=== PATIENT | male | born 1945 | race Caucasian/White ===

== ENCOUNTER 2017-01-03 17:24 | Inpatient (IN) | payer MEDICARE, BC ==
--- NOTE | ~2017-01-03 | CR72 ---
[facility] A Service of [facility] RADIOLOGY TEXT RESULTS PATIENT: OSWALDO RUANO LOCATION: [facility] 563-01 : 45 UNIT #: [id number] AGE: [address]: Matthew Whelan MD SEX: M ORDER DR: [id number] [facility] [address] [facility]. [place], [place] [address] [id number] MR#: [id number] Acc #: [id number] NAME: OSWALDO RUANO : 1945 SEX: M STUDY DATE/TIME: 01/03/2017 18:17 UNIT: JASON ROOM: STUDY DESCRIPTION: CR Chest Single View Portable Attending Physician: John Malhotra M.D. Ordering Physician: Ed Doctor [id number] [facility] Primary Care Physician: Jovani Pak M.D. MEDICAL IMAGING REPORT This report is preliminary unless electronic signature is present EXAM Frontal single view of the chest dated 01/03/2017 at 1817 hours. COMPARISON Single view chest dated 04/10/1969 at 21:07 hours. HISTORY Chest pain this morning. FINDINGS Single view of the chest was obtained. Port cath is in the left upper lateral chest with the tip of the catheter probably in the region of the left brachiocephalic vein. It is noted in the left paramidline aspect of the spine. Its position is stable when compared to the prior study from 04/10/2016. No significant interval new abnormality. Mild opacities in bilateral CP angles are noted which could be related to pleural thickening. Given the chronic appearance, thickening is favored. Pleural effusion and atelectasis/infiltrate in the lungs are in the differential consideration. IMPRESSION No significant interval change or acute abnormality. Dictated by... Rebecca Hayes M.D. THIS IS AN ELECTRONICALLY VERIFIED REPORT Rebecca Hayes M.D. at 01/04/2017 1:12 PM CPR/rnr TD: 01/03/2017 21:32 JOB #: [id number] [facility] A Service of [facility] RADIOLOGY TEXT RESULTS PATIENT: OSWALDO RUANO LOCATION: [facility] 563-01 : 45 UNIT #: [id number] AGE: [address]: Matthew Whelan MD SEX: M ORDER DR: MEDICAL IMAGING REPORT Page 1 of 1 COPY
--- NOTE | ~2017-01-03 | EKG ---
PATIENT: OSWALDO RUANO UNIT #: [id number] Ventricular Rate: 46 BPM Atrial Rate: 46 BPM P-R Interval: 160 ms QRS Duration: 80 ms Q-T Interval: 512 ms QTC Calculation(Bezet): 448 ms P [place]: 29 degrees Calculated R [place]: -5 degrees Calculated T [place]: 16 degrees Diagnosis Line: Sinus bradycardia Diagnosis Line: Minimal voltage criteria for LVH, may be normal Diagnosis Line: variant Diagnosis Line: Septal infarct , age undetermined Diagnosis Line: Abnormal ECG Diagnosis Line: When compared with ECG of 04-JAN-2017 06:49, Diagnosis Line: (unconfirmed) Diagnosis Line: Septal infarct is now Present Diagnosis Line: Confirmed by HILARY BERMUDEZ, MICHAEL ([id number]) on 01/05/2017 Diagnosis Line: 10:54:59 AM INTERPRETING MD: HILARY BERMUDEZ
--- NOTE | ~2017-01-03 | EKG ---
PATIENT: OSWALDO RUANO UNIT #: [id number] Ventricular Rate: 50 BPM Atrial Rate: 50 BPM P-R Interval: 132 ms QRS Duration: 78 ms Q-T Interval: 484 ms QTC Calculation(Bezet): 441 ms P [place]: 34 degrees Calculated R [place]: 13 degrees Calculated T [place]: 69 degrees Diagnosis Line: Sinus bradycardia Diagnosis Line: Nonspecific ST and T wave abnormality Diagnosis Line: Abnormal ECG Diagnosis Line: When compared with ECG of 21-OCT-2015 13:29, Diagnosis Line: No significant change was found Diagnosis Line: Confirmed by KENYA CARR MD ([id number]) on Diagnosis Line: 01/04/2017 10:40:12 AM INTERPRETING MD: LILLY BERMUDEZ
--- NOTE | ~2017-01-03 | HP ---
Unit #: [id number] #: [id number] Patient: OSWALDO RUANO [id number] [address] [place], [place] [address] [id number] I MR#: [id number] NAME: OSWALDO RUANO ROOM: 563 Age: 71 Sex: M Admission Date: 01/03/2017 : 1945 Attending Physician: Matthew Whelan M.D. Primary Care Physician: Jovani Pak M.D. 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 The patient typically follows with Dr. Pete Phan in [place]. According to the , the patient was at home yesterday in his typical state of health when he began to develop complaints of substernal chest pain. She states she had one episode approximately 10 o'clock in the morning which was relieved with nitroglycerin. The patient had gone outside in his wheelchair and was wheeling around when he developed a second episode of substernal chest pain described as tightness. He denies any palpitations, diaphoresis, nausea or vomiting. He did have some shortness of breath with the episode. She gave him an additional nitroglycerin with no relief. Therefore, he was brought into the emergency room for evaluation. On arrival to the emergency room, EKG was performed which showed sinus bradycardia, rate of 50 beats per minute, nonspecific ST-T wave abnormality. No acute ischemic change. Initial troponins have been negative. At present, he is currently resting in bed. He is chest pain free. His is at bedside. We were asked to see for evaluation of the above. PAST MEDICAL HISTORY 1. Hypertension. 2. Hyperlipidemia. 3. Known coronary artery disease with a history of stent placement 2015 in [place], [place]. 4. History of stroke 2001 with aphasia and right-sided hemiparesis. 5. BPH. 6. Diverticular disease. 7. Pancreatitis. PAST SURGICAL HISTORY 1. Mediport replacement and removal. 2. Cholecystectomy. 3. Colonoscopy. 4. Left carotid endarterectomy. SOCIAL HISTORY The patient lives with his . He mostly uses a wheelchair. However, he can ambulate some with a cane. He is a reformed tobacco user, quit in 2001. The patient denies illicit drugs or alcohol use. FAMILY HISTORY Unit #: [id number] #: [id number] Patient: OSWALDO RUANO Negative for coronary artery disease. ALLERGIES Flagyl and Levaquin. HOME MEDICATIONS 1. Aspirin 325 mg p.o. daily. 2. Avodart 0.5 mg p.o. daily. 3. Plavix 75 mg p.o. daily. 4. Cozaar 25 mg p.o. daily. 5. Pravastatin 40 mg p.o. q.h.s. 6. Omeprazole 40 mg p.o. daily. 7. Isosorbide 10 mg p.o. daily. 8. Metoprolol 25 mg p.o. daily. REVIEW OF SYSTEMS Completed and is negative except for what was stated above in the HPI. PHYSICAL EXAMINATION GENERAL APPEARANCE: This is a very pleasant, male who is in no acute distress. He has right-sided hemiparesis from a previous stroke. His is present at bedside. VITAL SIGNS: Temperature 98.1. Respiratory rate 16. Pulse 47 to 55. Blood pressure 179/74. HEENT: Head is atraumatic, normocephalic. Mucous membranes are dry. NECK: Supple. Trachea is midline. He has an incision in his left carotid artery. No JVD. CARDIOVASCULAR: S1, S2. No murmur, gallop or rub. LUNGS: Clear to auscultation. No increased work of breathing. No rales, rhonchi or wheezes. ABDOMEN: Soft, nontender. Obese. Nondistended. Bowel sounds are present. EXTREMITIES: Pulses are palpable but weak. No clubbing, cyanosis or edema. NEUROLOGIC: He is awake and alert. He follows commands. He moves extremities appropriately with the exception of his right side secondary to previous stroke and hemiparesis. DIAGNOSTIC STUDIES LABORATORY: Troponins have been less than 0.05. Sodium 137, potassium 3.9, chloride 105, CO2 25, BUN 31, creatinine 1.3, glucose 107. Hemoglobin 14.7, hematocrit 44.6, WBC 9.3, platelets 179. Magnesium 1.8. IMAGING: Chest x-ray shows port cath in the left upper chest with the tip of the catheter in the region of the left brachiocephalic vein. Position is stable. No significant interval new abnormality. Mild opacities in the bilateral CP angles are noted which could be related to pleural thickening. Given the chronic appearance, thickening is favored. Pleural effusion and atelectasis, infiltrate in the lungs are in the differential consideration but no significant interval change or acute abnormality is noted. ASSESSMENT 1. Chest pain rule out for acute coronary syndrome. 2. Nonsustained V-tach. 3. History of coronary artery disease with stent in 2016 in [place], [place]. History of reported recent abnormal stress Cardiolite. 4. Hypertension. Unit #: [id number] #: [id number] Patient: OSWALDO RUANO 5. Hyperlipidemia. 6. History of renal insufficiency followed by (1) in [place]. 7. History of stroke in 2001 with residual aphasia and right-sided hemiparesis. This case has been discussed with Dr. Mahan. We will check 2D echo, labs and lytes as well as a fasting lipid profile. He will be started on IV hydration at 75 mL/hour as well as Mucomyst for renal protection as the plan is for cardiac catheterization later this afternoon per Dr. Enriquez. We will obtain prior records and add hydralazine for increased blood pressure. The patient will start D5W with 3 amps sodium bicarb 100 mL/hour and those will run six hours post cardiac catheterization per the recommendations of the patient's kidney specialist. This was a note given to me from the . Dictated by Ivy Huff A.P.R.N. LMW/bd TD: 01/04/2017 13:06 JOB #: [id number] HISTORY AND PHYSICAL Page 1 of 1 X Ivy Huff APRN HISTORY AND PHYSICAL
--- NOTE | ~2017-01-03 | DS ---
Unit #: [id number] #: [id number] Patient: OSWALDO RUANO [id number] [facility]. [place], [place] [address] [id number] I MR#: [id number] NAME: OSWALDO RUANO ROOM: 563 Age: 71 Sex: M Admission Date: 01/03/2017 : 1945 Discharge Date: 01/05/2017 Attending Physician: Matthew Whelan M.D. Primary Care Physician: Jovani Pak M.D. DISCHARGE SUMMARY DISCHARGE DIAGNOSES 1. Chest pain, ruled out for acute coronary syndrome. 2. Asymptomatic nonsustained ventricular tachycardia. 3. Status post cardiac catheterization 01/04/[address] Enriquez with normal left main, left anterior descending with 40% to 50% stenosis in the mid area. It goes all around the apex and gets collaterals to right posterior descending artery, very mature collaterals. Left circumflex nondominant vessel. There is a stent which is widely patent. There is a small ramus coming from the proximal part of the left circ at the ostium and has 90% stenosis. Right coronary artery is a large, dominant vessel. Mid area 100% occluded, distally filled by collaterals. 4. 2D echocardiogram - aortic valve mildly calcified, mild aortic stenosis, mild aortic regurgitation, mild tricuspid regurgitation. Right ventricular systolic pressure 44 mmHg. Mild concentric left ventricular hypertrophy. Globally normal left ventricular systolic function. Impaired relaxation. Grade 1 diastolic dysfunction. 5. Asymptomatic sinus bradycardia. 6. Hypertension. 7. Hyperlipidemia. 8. History of renal insufficiency, followed by Dr. Silva in [place]. 9. History of stroke in 2001 with residual aphasia and right sided hemiparesis. DISCHARGE MEDICATIONS 1. Amlodipine 5 mg p.o. daily. 2. Lopressor 25 mg p.o. daily. 3. Atorvastatin 80 mg p.o. q. h.s. 4. Cozaar 50 mg p.o. b.i.d. 5. Avodart 0.5 mg p.o. daily. 6. Aspirin 81 mg p.o. daily. 7. Plavix 75 mg p.o. daily. 8. Omeprazole 40 mg p.o. daily. 9. Isosorbide mononitrate 10 mg p.o. daily. 10. Nitroglycerin 0.4 mg sublingual p.r.n. chest pain. HOSPITAL COURSE This is a very pleasant 70-year-old male with a past medical history of hypertension, hyperlipidemia, coronary artery disease with a history of stent in 2015 in [place], [place], stroke in 2001 with residual aphasia and right sided hemiparesis. The patient usually follows with Dr. Pete Phan in [place]. He presented to the emergency room secondary to continued complaints of chest pain, unrelieved with nitroglycerin. The patient was also noted to be in sinus bradycardia, rate of 46 to 55 Unit #: [id number] #: [id number] Patient: BINDU,OSWALDO beats/minute, asymptomatic. His EKG showed minimal voltage criteria for LVH. Could not rule out previous septal infarct, age undetermined. Point of care troponin were performed and were negative. The patient and state that he had a recent stress test in [facility] which was slightly abnormal. It was decided to take the patient to cardiac lab coordinator for definitive review of his coronary anatomy. Cardiac catheterization was performed by Dr. Enriquez. However, the patient, in lieu of his renal insufficiency, he was prepped with IV hydration six hours pre and post catheterization with D5W with 3 amps of sodium bicarb at 100 mL/hour. Cardiac catheterization results showed a normal left main, large vessel LAD with mid stenosis of 40% to 50%. Circumflex nondominant with a stent which was patent. Small ramus coming from the proximal part of the left circ, at the ostium is 90% stenosed. The RCA was a large, dominant vessel. In the mid area was 100W% occluded, distally filled by collaterals. It was decided the patient should continue on medical treatment. His RCA is distally filled by very mature collaterals. Dr. Enriquez, in his note, he states that if the patient continues to have angina, then CT of the RCA can be performed. He may need laser procedure to pen that vessel. He states his creatinine is elevated today so, therefore, he was reluctant to open this vessel. He will be treated medically. He was also started on Norvasc daily. The patient has stayed overnight. His cardiac rhythm has remained stable. He has had no further episodes with nonsustained V-tach. He denies any further complaints of chest pain even with ambulation. His cardiac cath site is intact. CONSULTANTS There were no consultants on this case. DIAGNOSTIC STUDIES LABORATORY: Glucose 101, BUN 24, creatinine 1.3, sodium 141, potassium 3.9, chloride 104, CO2 28, magnesium 1.8. Troponins remain negative, less than 0.03. Cholesterol 199, triglycerides 147, LDL of 141, HDL 29, LDL/HDL ratio of 5. Hemoglobin 14.0, hematocrit 42.6, WBC 8.4, platelet count 139. CARDIOVASCULAR: EKG shows sinus bradycardia, rate of 46 beats/minute. Minimal voltage criteria for LVH. QTC interval 448 msec. Previous septal infarct could not be ruled out. No acute ischemic changes noted. PHYSICAL EXAMINATION VITAL SIGNS: Temperature 98.0, respiratory rate 16 to 18, pulse is 47 to 55, blood pressure anywhere from 133/56 to 190/77. GENERAL: This is a very pleasant male laying in bed, in no acute distress. His is at bedside. HEENT: Head is atraumatic, normocephalic. Pupils are equal and round. Mucous membranes are moist. NECK: Trachea is midline. No lymphadenopathy, no JVD. Carotid upstrokes are normal. CARDIOVASCULAR: S1, S2. No murmur, gallop, or rub. LUNGS: Clear to auscultation. No rales, rhonchi or wheezing. No increased work of breathing. Unit #: [id number] #: [id number] Patient: OSWALDO RUANO ABDOMEN: Obese, soft, nontender, nondistended. Bowel sounds are present. EXTREMITIES: Pulses are palpable. No clubbing, cyanosis, or edema. NEUROLOGICAL: He is awake, alert and oriented. He follows commands. He moves extremities appropriately with the exception of his right side secondary to previous stroke and hemiparesis. DISCHARGE INSTRUCTIONS The patient has been seen and evaluated and is deemed stable for discharge home today. He was given post cardiac catheterization instructions which were reviewed with both the family and the patient. He was advised the importance of no driving, no heavy lifting, pushing or pulling and no swimming, hot tubs or baths for the next 24 to 48 hours. The patient was also advised on things to look for which include bleeding, swelling or signs and symptoms of infection. He was also advised on any recurrence of chest pain not relieved with nitroglycerin to seek further evaluation. The patient's blood pressure has been continually high during this hospitalization. He has been started on Norvasc, and his Cozaar has been increased. There is no room to increase his beta ritesh secondary to his bradycardia. He will continue on his aspirin and Plavix regimen. He will also be started on high dose statin therapy. Will continue with medical management for now. The patient was advised to follow up with his primary care doctor in approximately one week. He has an appointment with Dr. Phan next Sunday, on the 10 of January, in the [place] office. He was advised to continue to keep that appointment. Dictated by... Margo Alva/sarah TD: 01/09/2017 06:57 JOB #: [id number] DISCHARGE SUMMARY Page 1 of 1 X Ivy Huff APRN X DISCHARGE SUMMARY
--- NOTE | ~2017-01-03 | EKG ---
PATIENT: OSWALDO RUANO UNIT #: [id number] Ventricular Rate: 47 BPM Atrial Rate: 47 BPM P-R Interval: 138 ms QRS Duration: 78 ms Q-T Interval: 504 ms QTC Calculation(Bezet): 446 ms P [place]: 20 degrees Calculated R [place]: -2 degrees Calculated T [place]: 61 degrees Diagnosis Line: Marked sinus bradycardia Diagnosis Line: Nonspecific ST depression Diagnosis Line: Borderline ECG Diagnosis Line: Diagnosis Line: Confirmed by MICHAEL RICHARD MD ([id number]) on 01/05/2017 Diagnosis Line: 10:50:24 AM INTERPRETING MD: HILARY BERMUDEZ
[~2017-01-03 17:24] MED LIST: ACETAMINOPHEN PO; ASPIRIN PO; ASPIRIN81 M2 PO; AUGMENTIN875 MG PO; AVADART; AVODART0.5 MG PO; BAYER ASPIRIN325 M1 PO; BENTYL PO; CHLORTHALIDONE25 MG PO; COZAAR PO; COZAAR25 MG PO; CRESTOR PO; DILANTIN PO; FISH OIL 1,0001 CAP PO; FISH OIL 1,0001 EACH PO; FLAGYL PO; LEVAQUIN PO; METOPROLOL TART25 MG PO; NIASPAN PO; OMEPRAZOLE40 M1 PO; PERCOCET5/325 PO; PLAVIX PO; PRAVASTATIN SOD40 MG PO; PREVACID PO; SODIUM CHLORI1000 ML INJ; ZANTAC150 M1 PO; ZEBETA5 M1 PO; ZEBETA5 MG PO; ZETIA PO
[2017-01-03 18:01] LABS: BASOPHIL% 0.5 % (0-2.5); EOSINOPHIL# 0.3 X10e3 (0-0.7); EOSINOPHIL% 3.1 % (0.0-7.0); HEMATOCRIT 44.6 % (38.0-50.0); HEMOGLOBIN 14.7 gm/dL (13.0-16.0); LYMPHOCYTE# 2.8 X10e3 (1.0-3.5); LYMPHOCYTE% 29.4 % (17.0-45.0); MEAN CELL VOLUME 84.7 FL (83-96); MEAN CORPUSCULAR HEMOGLOBIN 27.9 PG (28-34); MEAN PLATELET VOLUME 8.3 FL (6.5-11.5); MONOCYTE# 1.2 X10e3 (0-1.0); MONOCYTE% 13.1 % (3.0-12.0); NEUTROPHIL% 53.9 % (40-75); PLATELET COUNT 179 X10e3 (140-420); RED BLOOD COUNT 5.27 X10e (3.90-5.60); RED CELL DISTRIBUTION WIDTH 14.6 % (11.0-15.5); WHITE BLOOD COUNT 9.3 X10e3 (4.0-10.5)
[2017-01-03 18:04] LABS: DIFF IND NO
[2017-01-03 18:12] LABS: POC - TROPONIN <0.05 ng/mL (<=0.05)
[2017-01-03 18:16] LABS: PARTIAL THROMBOPLASTIN TIME 25.5 SECONDS (23.5-31.3); PROTHROMBIN TIME (PATIENT) 10.7 SECONDS (10.0-11.7)
[2017-01-03 18:19] LABS: ALBUMIN SERUM 4.1 g/dL (3.5-5.0); BILIRUBIN, DIRECT 0.2 mg/dL (0.0-0.2); BILIRUBIN,INDIRECT 0.7 mg/dL (0.0-0.9); BILIRUBIN,TOTAL 0.9 mg/dL (0.2-2.0); BUN/CREATININE RATIO 23.84; CALCIUM SERUM 8.8 mg/dL (8.4-10.2); CREATININE SERUM 1.3 mg/dL (0.6-1.4); GLOM FILT RATE Estimated 54.9 mL/min (>60); POTASSIUM 3.9 mmol/L (3.5-5.1); PROTEIN TOTAL SERUM 7.1 g/dL (6.0-8.3)
[2017-01-03 20:26] LABS: POC - CKMB 1.1 ng/mL (0.0-7.9); POC - TROPONIN <0.05 ng/mL (<=0.05)
[2017-01-03] MEDS ORDERED: ISOSORBIDE MONO10 MG PO (21:12)
[2017-01-03] MEDS ORDERED: METOPROLOL TAR25 MG DOB (21:15)
[2017-01-04 14:47] LABS: HEMATOCRIT 46.6 % (38.0-50.0); HEMOGLOBIN 15.5 gm/dL (13.0-16.0); MEAN CELL VOLUME 84.2 FL (83-96); MEAN CORPUSCULAR HGB CONC 33.2 g/dL (30-36); MEAN PLATELET VOLUME 7.8 FL (6.5-11.5); RED BLOOD COUNT 5.54 X10e (3.90-5.60); RED CELL DISTRIBUTION WIDTH 14.7 % (11.0-15.5); WHITE BLOOD COUNT 8.1 X10e3 (4.0-10.5)
[2017-01-04 15:12] LABS: PARTIAL THROMBOPLASTIN TIME 27.1 SECONDS (23.5-31.3)
[2017-01-04 15:20] LABS: CHOLESTEROL 199 mg/dL (0-200); HDL CHOLESTEROL 29 mg/dL (29-75); LDL/HDL RATIO 5 RATIO (0-4); TRIGLYCERIDES 147 mg/dL (10-160)
[2017-01-04 15:22] LABS: LDL CHOLESTEROL 141 mg/dL ([, -130])
[2017-01-04 15:52] LABS: BUN/CREATININE RATIO 17.69; CALCIUM SERUM 9.1 mg/dL (8.4-10.2); CREATININE SERUM 1.3 mg/dL (0.6-1.4); GLOM FILT RATE Estimated 54.9 mL/min (>60); POTASSIUM 4.1 mmol/L (3.5-5.1)
[2017-01-05 06:15] LABS: BASOPHIL% 0.5 % (0-2.5); EOSINOPHIL# 0.3 X10e3 (0-0.7); EOSINOPHIL% 3.1 % (0.0-7.0); HEMATOCRIT 42.6 % (38.0-50.0); LYMPHOCYTE# 1.2 X10e3 (1.0-3.5); LYMPHOCYTE% 14.9 % (17.0-45.0); MEAN CELL VOLUME 84.8 FL (83-96); MEAN CORPUSCULAR HEMOGLOBIN 27.8 PG (28-34); MEAN CORPUSCULAR HGB CONC 32.8 g/dL (30-36); MEAN PLATELET VOLUME 8.4 FL (6.5-11.5); MONOCYTE# 1.1 X10e3 (0-1.0); MONOCYTE% 13.5 % (3.0-12.0); NEUTROPHIL# 5.7 X10e3 (1.5-7.1); PLATELET COUNT 139 X10e3 (140-420); RED BLOOD COUNT 5.03 X10e (3.90-5.60); WHITE BLOOD COUNT 8.4 X10e3 (4.0-10.5)
[2017-01-05 06:28] LABS: DIFF IND NO
[2017-01-05 07:18] LABS: BUN/CREATININE RATIO 18.46; CALCIUM SERUM 8.9 mg/dL (8.4-10.2); CREATININE SERUM 1.3 mg/dL (0.6-1.4); GLOM FILT RATE Estimated 54.9 mL/min (>60); POTASSIUM 3.9 mmol/L (3.5-5.1)
[2017-01-05] MEDS ORDERED: AMLODIPINE BESYL5 MG PO (14:40)
[2017-01-05] MEDS ORDERED: LIPITOR80 MG PO (14:45)
[2017-01-22] MEDS ORDERED: PANTOPRAZOLE SO40 MG PO (13:45)
[2017-01-22] MEDS ORDERED: ASPIRIN81 M2 PO (13:47)
== END 2017-01-05 16:14 | disposition home or self-care (01) | DRG 287 ==
LOC: CED 17:24 → CEDOF 20:30 → CED 21:42 → C5C 21:42 → CEDOF 22:46 → C5C 22:46
PROVIDERS: Emergency Medicine; Internal Medicine Cardiovascular Disease
PROC: 4A023N7 Measurement of Cardiac Sampling and Pressure, Left Heart, Percutaneous Approach (ICD-10-PCS; principal; 2017-01-04)
PROC: B211YZZ Fluoroscopy of Multiple Coronary Arteries using Other Contrast (ICD-10-PCS; 2017-01-04)
PROC: B246YZZ Ultrasonography of Right and Left Heart using Other Contrast (ICD-10-PCS; 2017-01-04)
DX: R07.89 Other chest pain (principal); I47.2 Ventricular tachycardia; R00.1 Bradycardia, unspecified; I69.351 Hemiplegia and hemiparesis following cerebral infarction affecting right dominant side; I25.10 Atherosclerotic heart disease of native coronary artery without angina pectoris; Z95.5 Presence of coronary angioplasty implant and graft; I10 Essential (primary) hypertension; E78.5 Hyperlipidemia, unspecified; I69.320 Aphasia following cerebral infarction; Z79.82 Long term (current) use of aspirin; Z79.01 Long term (current) use of anticoagulants; Z90.49 Acquired absence of other specified parts of digestive tract; Z87.891 Personal history of nicotine dependence
CPT/HCPCS: 36415; 71010; 80048; 80061; 80076; 82553; 83735; 84484; 85025; 85027; 85610; 85730; 93005; 93306; 99285; C1769; J1644; J2250; J3010; J7060

== ENCOUNTER → 2017-01-22 | Outpatient (CLI) | payer MEDICARE, BC ==
[~2017-01-22] MED LIST changes: +AMLODIPINE BESYL5 MG PO; +ISOSORBIDE MONO10 MG PO; +LIPITOR80 MG PO; +METOPROLOL TAR25 MG DOB; +PANTOPRAZOLE SO40 MG PO
[2017-01-22 14:44] LABS: HEMATOCRIT 44.3 % (38.0-50.0); HEMOGLOBIN 14.7 gm/dL (13.0-16.0); MEAN CELL VOLUME 85.2 FL (83-96); MEAN CORPUSCULAR HEMOGLOBIN 28.3 PG (28-34); MEAN CORPUSCULAR HGB CONC 33.2 g/dL (30-36); MEAN PLATELET VOLUME 7.9 FL (6.5-11.5); RED BLOOD COUNT 5.2 X10e (3.90-5.60); RED CELL DISTRIBUTION WIDTH 14.5 % (11.0-15.5); WHITE BLOOD COUNT 9.2 X10e3 (4.0-10.5)
[2017-01-22 14:58] LABS: PARTIAL THROMBOPLASTIN TIME 24.1 SECONDS (23.5-31.3); PROTHROMBIN TIME (PATIENT) 10.7 SECONDS (10.0-11.7)
[2017-01-22 15:15] LABS: ALBUMIN SERUM 4.2 g/dL (3.5-5.0); BILIRUBIN,TOTAL 0.8 mg/dL (0.2-2.0); CALCIUM SERUM 9.1 mg/dL (8.4-10.2); CREATININE SERUM 1.3 mg/dL (0.6-1.4); GLOM FILT RATE Estimated 54.5 mL/min (>60); POTASSIUM 4.3 mmol/L (3.5-5.1); PROTEIN TOTAL SERUM 7.2 g/dL (6.0-8.3)
== END | disposition home or self-care (01) ==
LOC: CAMB 13:15
PROVIDERS: Specialist
DX: Z01.812 Encounter for preprocedural laboratory examination (principal)
CPT/HCPCS: 36415; 80053; 85027; 85610; 85730

== ENCOUNTER → 2017-01-25 | Day surgery (SDC) | payer MEDICARE, BC ==
--- NOTE | ~2017-01-25 | OR ---
Unit #: [id number] #: [id number] Patient: OSWALDO CABRALES [id number] [facility] [address] [facility] [place] [facility]. [place], [place] [address] [id number] O MR#: [id number] NAME: OSWALDO CABRALES ROOM: Date of Procedure: 01/25/2017 Admission Date: 01/25/2017 Surgeon: Jovani Pak M.D. : 1945 Attending Physician: Jovani Pak M.D. OPERATIVE REPORT PREOPERATIVE DIAGNOSIS Failed MediPort. POSTOPERATIVE DIAGNOSIS Failed MediPort. PROCEDURE PERFORMED Removal and replacement of left subclavian MediPort. ANESTHESIA General endotracheal anesthesia. INDICATIONS FOR PROCEDURE Mr. Cabrales is a 72-year-old gentleman with multiple medical conditions that requires ongoing IV access. He has had a longstanding MediPort and the nursing staff reported that they could no longer aspirate through the port. A portogram was performed by Radiology and there was no fibrin sheath and so we decided to replace his MediPort to allow for appropriate function for blood draws as well as medication administration. DESCRIPTION OF PROCEDURE The patient was admitted to [facility], positively identified, and transported to the operating room, and after induction of general endotracheal anesthesia by the anesthesiologist, he received IV antibiotics. He was prepped and draped in usual sterile fashion. The old MediPort site was removed by wedge resection. I dissected down, identified the Silastic catheter, mobilized it from the MediPort hub. The Silastic catheter was divided using scissors and then the guidewire was attempted to be passed through the Silastic catheter, but the guidewire would not pass. Therefore, the Silastic catheter and the old MediPort removed. They were discarded. Through a separate stab incision, using the introducer needle, I reaccessed the subclavian vein and easily passed the guidewire into the superior vena cava. The guidewire was mobilized and brought into the subdermal pocket and then the dilator and sheaths were passed over the guidewire and the guidewire was removed. The dilator was removed and then the Silastic catheter was positioned in the superior vena cava under fluoroscopic control. The sheath was removed and the catheter was attached to the MediPort using the locking device. I secured the MediPort in the subdermal pocket with four-point fixation using 3-0 silk suture. The port was aspirated. It easily aspirated and it was flushed with heparinized saline. The skin incision was closed with 4-0 Monocryl subcuticular interrupted suture and Dermabond skin adhesive. The Unit #: [id number] #: [id number] Patient: OSWALDO CABRALES patient tolerated the procedure well and was transported to recovery in stable condition. In recovery room, a portable chest x-ray showed no pneumothorax and good position of the port. The patient was observed by Anesthesia. When Anesthesia feels he is stable, he can be discharged home. Dictated by... Michelle Myers/patria TD: 01/25/2017 18:13 JOB #: [id number] OPERATIVE REPORT Page 1 of 1 X Jovani Pak MD X PROCEDURE OPERATIVE NOTE
--- NOTE | ~2017-01-25 | CR71 ---
[facility] A Service of [facility] RADIOLOGY TEXT RESULTS PATIENT: OSWALDO RUANO LOCATION: [facility] : 45 UNIT #: [id number] AGE: [address]: Jovani Pak MD SEX: M ORDER DR: [id number] [facility] [address] [facility] [place], [place] [address] [id number] O MR#: [id number] Acc #: [id number] NAME: OSWALDO RUANO : 1945 SEX: M STUDY DATE/TIME: 01/25/2017 16:23 UNIT: [facility] ROOM: STUDY DESCRIPTION: CR Chest Single View Attending Physician: Jovani Pak M.D. Ordering Physician: Jovani Pak M.D. Primary Care Physician: Generic Doctor Not In System MEDICAL IMAGING REPORT This report is preliminary unless electronic signature is present EXAM Single C-arm view of the chest, 01/25/2017. INDICATION Malfunctioning Medi-Port catheter. FINDINGS A single image was obtained of the upper mid chest. Fluoro time was 16 seconds. Study shows the port tubing with the tip at the SVC level. IMPRESSION Port tubing SVC level. STAT * RESULT Dictated by... Jovani Ojeda Jr., M.D. THIS IS AN ELECTRONICALLY VERIFIED REPORT Jovani Ojeda Jr., M.D. at 01/26/2017 4:33 PM AGA/roxana TD: 01/25/2017 17:54 JOB #: [id number] MEDICAL IMAGING REPORT Page 1 of 1 COPY
--- NOTE | ~2017-01-25 | CR71 ---
[facility] A Service of [facility] RADIOLOGY TEXT RESULTS PATIENT: OSWALDO RUANO LOCATION: [facility] : 45 UNIT #: [id number] AGE: [address]: Jovani Pak MD SEX: M ORDER DR: [id number] [facility] [address] [facility] [place], [place] [address] [id number] O MR#: [id number] Acc #: [id number] NAME: OSWALDO RUANO : 1945 SEX: M STUDY DATE/TIME: 01/25/2017 16:57 UNIT: [facility] ROOM: STUDY DESCRIPTION: CR Chest Single View Attending Physician: Jovani Pak M.D. Ordering Physician: Jovani Pak M.D. Primary Care Physician: Generic Doctor Not In System MEDICAL IMAGING REPORT This report is preliminary unless electronic signature is present EXAM Chest x-ray, single view. HISTORY Post-placement of a tunneled catheter today. REPORT Single frontal portable view of the chest timed 16:57 on 01/25/2017 is compared to a film from 01/03/2017. FINDINGS There is a different tunneled catheter on the left side. The catheter tip now terminates in the distal SVC level. There is no pneumothorax. There is a small amount of atelectasis, likely left base laterally, mildly increased from prior. There is apparently bilateral pleural thickening or subpleural fat. Cardiac silhouette is mildly enlarged with at least some ectasia of the thoracic aorta and vascular calcification. IMPRESSION 1. Left side tunneled catheter terminates at the distal SVC level. No pneumothorax. 2. Cardiac silhouette enlargement with some increased atelectasis in the left base laterally. 3. There is probably bilateral subpleural fat versus pleural thickening. This is also noted on the prior study, 01/03/2017. Please correlate with the patient's history. STAT * RESULT Dictated by... [facility] A Service of [facility] RADIOLOGY TEXT RESULTS PATIENT: OSWALDO RUANO [id number] [birth year] UNIT #: [id number] AGE: [address]: Jovani Pak MD SEX: M ORDER DR: Tasia Ndiaye M.D. THIS IS AN ELECTRONICALLY VERIFIED REPORT Tasia Ndiaye M.D. at 01/26/2017 7:08 AM GABBIE/melvin TD: 01/25/2017 17:20 JOB #: [id number] MEDICAL IMAGING REPORT Page 1 of 1 COPY
== END | disposition home or self-care (01) ==
LOC: CSUR 12:44
DX: T82.594A Other mechanical complication of infusion catheter, initial encounter (principal); I25.10 Atherosclerotic heart disease of native coronary artery without angina pectoris; I12.9 Hypertensive chronic kidney disease with stage 1 through stage 4 chronic kidney disease, or unspecified chronic kidney disease; N18.3 Chronic kidney disease, stage 3 (moderate); I25.2 Old myocardial infarction; J43.9 Emphysema, unspecified; N40.0 Benign prostatic hyperplasia without lower urinary tract symptoms; K21.9 Gastro-esophageal reflux disease without esophagitis; J45.909 Unspecified asthma, uncomplicated; E78.5 Hyperlipidemia, unspecified; Z87.891 Personal history of nicotine dependence; Z88.1 Allergy status to other antibiotic agents; Z79.82 Long term (current) use of aspirin; Z79.899 Other long term (current) drug therapy; Z95.5 Presence of coronary angioplasty implant and graft; Z90.49 Acquired absence of other specified parts of digestive tract; Z98.890 Other specified postprocedural states; Y83.8 Other surgical procedures as the cause of abnormal reaction of the patient, or of later complication, without mention of misadventure at the time of the procedure
CPT/HCPCS: 71010; 76000; 77001; C1788; J1644; J2270; J2765; J3370